=== PATIENT | female | born 2000 | race Caucasian/White ===

== ENCOUNTER 2023-08-26 12:55 | Emergency (ER) | payer SELFPAY ==
[2023-08-26] MEDS ORDERED: Amoxicillin/Clavulanate K 875-125 MG Tab ONE (13:30)
== END 2023-08-26 13:40 | disposition home or self-care (01) ==
LOC: LB.ED 12:55
DX: S60.511A Abrasion of right hand, initial encounter (principal); L03.113 Cellulitis of right upper limb; W55.03XA Scratched by cat, initial encounter
CPT/HCPCS: 73130-LT; 99283; A9270-GY

== ENCOUNTER 2024-02-08 07:39 | Emergency (ER) | payer SELFPAY ==
[2024-02-08 08:07] VITALS: BP 113/76; PULSE 89
== END 2024-02-08 08:17 | disposition home or self-care (01) ==
LOC: LB.ED 07:39
DX: K13.70 Unspecified lesions of oral mucosa (principal); Z88.2 Allergy status to sulfonamides; Z88.8 Allergy status to other drugs, medicaments and biological substances
CPT/HCPCS: 99283

== ENCOUNTER 2024-05-10 09:50 | Emergency (ER) | payer SELFPAY ==
[2024-05-10 11:00] LABS: INFLUENZA A NAA NEGATIVE (NEGATIVE); INFLUENZA B NAA NEGATIVE (NEGATIVE); RESPIRATORY SYNCYTIAL VIR NAA NEGATIVE (NEGATIVE)
[2024-05-10 11:01] LABS: CORONAVIRUS COVID-19 NAA NEGATIVE (NEGATIVE)
== END 2024-05-10 11:09 | disposition home or self-care (01) ==
LOC: LB.ED 09:50
DX: J06.9 Acute upper respiratory infection, unspecified (principal); Z88.2 Allergy status to sulfonamides; Z88.8 Allergy status to other drugs, medicaments and biological substances; Z90.49 Acquired absence of other specified parts of digestive tract; Z87.891 Personal history of nicotine dependence
CPT/HCPCS: 0241U; 87651; 99283